=== PATIENT | male | born 2000 | race African-American/Black ===

== ENCOUNTER 2022-06-19 02:06 | Emergency (ER) | payer OTHER, SELFPAY ==
[2022-06-19] MEDS ORDERED: Amoxicillin/Potassium Clav 875 MG TAB ONE (03:03)
[2022-06-19] MEDS ORDERED: Boostrix 0.5 ML (Tdap) VIAL (>/=7 yrs of age) ONE (03:03)
== END 2022-06-19 03:15 | disposition home or self-care (01) ==
LOC: CSHERS 02:06
DX: S41.151A Open bite of right upper arm, initial encounter (principal); W54.0XXA Bitten by dog, initial encounter; Z23 Encounter for immunization
CPT/HCPCS: 90471; 90715

== ENCOUNTER 2023-05-22 09:20 | Emergency (ER) | payer SELFPAY ==
[2023-05-22] MEDS ORDERED: cefTRIAXone (ROCEPHIN) 500 MG VIAL ONE (10:04)
[2023-05-22 17:11] LABS: Chlam.trachomatis by PCR,Urine DETECTED (NotDetected); GC N.gonorrhoeae PCR,UrineVOID DETECTED (NotDetected)
== END 2023-05-22 10:45 | disposition home or self-care (01) ==
LOC: CSHERS 09:20
DX: N34.2 Other urethritis (principal); F17.210 Nicotine dependence, cigarettes, uncomplicated
CPT/HCPCS: 87491; 87591; 96372; 99284; J0696

== ENCOUNTER 2023-07-06 22:24 | Emergency (ER) | payer SELFPAY ==
[2023-07-06] MEDS ORDERED: Boostrix 0.5 ML (Tdap) VIAL (>/=7 yrs of age) ONE (23:48)
== END 2023-07-07 00:41 | disposition home or self-care (01) ==
LOC: CSHERS 22:24
DX: S60.011A Contusion of right thumb without damage to nail, initial encounter (principal); F17.210 Nicotine dependence, cigarettes, uncomplicated; Z23 Encounter for immunization; V86.96XA Unspecified occupant of dirt bike or motor/cross bike injured in nontraffic accident, initial encounter
CPT/HCPCS: 90471; 90715